=== PATIENT | female | born 1990 | race Caucasian/White ===

== ENCOUNTER 2018-02-01 07:16 | Emergency (ER) | payer OTHER ==
[2018-02-01] MEDS ORDERED: DEXAMETHASONE 10 MG/ML VIAL PO STA (08:44)
[2018-02-01] MEDS ORDERED: LIDOCAINE 1% 2 ML VIAL SUBQ ONE (08:44)
[2018-02-01] MEDS ORDERED: cefTRIAXone 1 GM VIAL IM STA (08:44)
--- NOTE | 2018-02-01 08:54 | ED Physician Documentation ---
PD HPI HEENT - Stated complaint Stated Complaint: EAR PX/R FACE LUMP - Chief complaint Chief Complaint: Heent - History obtained from History obtained from: Patient, Family - History of Present Illness Timing - onset: Yesterday Timing - duration: Days (1) Timing - details: Gradual onset, Still present Location: Right ear Improves: Medication Worsens: Swalllowing Associated symptoms: Congestion, Rhinorrhea, Facial swelling, Headache, Cough Similar symptoms before: Diagnosis (OM) Recently seen: Not recently seen - Additional information Additional information: 27-year-old female with a history of recurrent otitis has had her tonsils and adenoids removed about 2 years ago. Over the past 3 days she has had developed a cough and congestion she now has severe pain in her right ear and behind the ear as well as some difficulty swallowing. Review of Systems Constitutional: denies: Fever Eyes: denies: Decreased vision Ears: reports: Ear pain Nose: reports: Rhinorrhea / runny nose, Congestion Throat: reports: Sore throat Cardiac: denies: Chest pain / pressure, Palpitations Respiratory: reports: Cough. denies: Dyspnea GI: denies: Vomiting PD PAST MEDICAL HISTORY - Present Medications Home Medications: Ambulatory Orders Medication Instructions Recorded Confirmed Azithromycin [Zithromax] 250 mg PO DAILY #6 tablet 02/01/18 Fluoxetine HCl [Prozac] 20 mg 02/01/18 - Allergies Allergies/Adverse Reactions: Allergies Allergy/AdvReac Type Severity Reaction Status Date / Time acetaminophen Allergy Mild Nausea Verified 02/01/18 07:37 PD ED PE NORMAL - Vitals Vital signs reviewed: Yes (normal ) - General General: No acute distress, Well developed/nourished - HEENT HEENT: Atraumatic, PERRL, EOMI, Other (The right TM is inflammed in the attic and there is marked tenderness to the right mastoid. Push on the pinna and pull on the tragus cause pain again over the right mastoid area. ) - Neck Neck: Supple, no meningeal sign, No bony TTP, Other (posterior adenopathy is present. ) - Cardiac Cardiac: RRR, No murmur - Respiratory Respiratory: No respiratory distress, Clear bilaterally - Abdomen Abdomen: Soft, Non tender - Back Back: No CVA TTP, No spinal TTP - Derm Derm: Normal color, Warm and dry, No rash - Extremities Extremities: No deformity, No edema - Neuro Neuro: Alert and oriented X 3, No motor deficit, No sensory deficit, Normal speech Eye Opening: Spontaneous Motor: Obeys Commands Verbal: Oriented GCS Score: 15 - Psych Psych: Normal mood, Normal affect Results - Vitals Vitals: Vital Signs - 24 hr 02/01/18 07:35 Temperature 36.7 C Heart Rate 85 Respiratory 16 Rate Blood Pressure 137/79 H O2 Saturation 100 Oxygen O2 Source Room air - Rads (name of study) CT sinuses Radiology: Prelim report reviewed (Impression: 1. The bilateral mastoid air cells are clear. 2 Mild mucosal thickening of the bilateral maxillary sinuses, sphenoid sinuses, and ethmoid air cells. The bilateral drainage pathways appear at least partially opacified by soft tissue thickening. No air-fluid levels to suggest acute sinusitis.), EMP read indepedently, See rad report PD MEDICAL DECISION MAKING - ED course Complexity details: reviewed old records, reviewed results, re-evaluated patient , considered differential, d/w patient, d/w family ED course: 27-year-old female with a history of recurrent otitis has otitis again today with a lot of pain to the right side of her face. On my initial evaluation I was concerned about the possibility of mastoiditis because of tenderness over the mastoid air cells on the right side. CT scanning of the mastoids is without evidence of acute mastoiditis. The patient is treated here in the emergency department with 10 mg of dexamethasone orally and 1 g of Rocephin IM. We will place her on a course of azithromycin as well. - Sepsis Event Vital Signs: Vital Signs - 24 hr 02/01/18 07:35 Temperature 36.7 C Heart Rate 85 Respiratory 16 Rate Blood Pressure 137/79 H O2 Saturation 100 Oxygen O2 Source Room air Departure - Departure Disposition: 01 Home, Self Care Clinical Impression: Otitis media Qualifiers: Otitis media type: suppurative Chronicity: acute Laterality: right Recurrence: not specified as recurrent Spontaneous tympanic membrane rupture: without spontaneous rupture Qualified Code(s): H66.001 - Acute suppurative otitis media without spontaneous rupture of ear drum, right ear Instructions: ED Otitis Media Acute Adult Follow-Up: MIROSLAVA ALEJANDRE DO [Primary Care Provider] - Prescriptions: Azithromycin [Zithromax] 250 mg PO DAILY #6 tablet
--- NOTE | 2018-02-01 09:33 | CT Report ---
Procedure Date: 02/01/2018 Accession Number: [id number] / [id number] Procedure: CT - Sinuses CPT Code: FULL RESULT: EXAM: CT SINUS EXAM DATE: 02/01/2018 09:12 AM. HISTORY: Right ear pain, question mastoiditis. COMPARISONS: None. TECHNIQUE: Routine multi-axial CT imaging performed through the sinuses. Iodinated IV contrast: None. Reconstructions: Coronal and sagittal. In accordance with CT protocol optimization, one or more of the following dose reduction techniques were utilized for this exam: automated exposure control, adjustment of mA and/or KV based on patient size, or use of iterative reconstructive technique. FINDINGS: RIGHT Frontal: Normal. Ethmoid: Mild mucosal thickening. Maxillary: Mild mucosal thickening. Sphenoid: Mild mucosal thickening. Drainage Pathways: The frontal recess, ostiomeatal complex and sphenoethmoidal recess are at least partially opacified by soft tissue density. LEFT Frontal: Normal. Ethmoid: Mild mucosal thickening. Maxillary: Mild mucosal thickening. Sphenoid: Mild mucosal thickening. Drainage Pathways: The frontal recess, ostiomeatal complex and sphenoethmoidal recess are at least partially opacified by soft tissue density. Nasal Cavity: Normal. No mass or significant anatomic abnormality evident. Osseous Structures: Unremarkable. Orbits: Unremarkable. Other: The bilateral mastoid air cells are clear. IMPRESSION: 1. The bilateral mastoid air cells are clear. 2. Mild mucosal thickening of the bilateral maxillary sinuses, sphenoid sinuses, and ethmoid air cells. The bilateral drainage pathways appear at least partially opacified by soft tissue thickening. No air-fluid levels to suggest acute sinusitis. RADIA
[2018-02-01 10:09] VITALS: BP 123/72
== END 2018-02-01 10:11 | disposition home or self-care (01) ==
LOC: ED 07:16
DX: H66.004 Acute suppurative otitis media without spontaneous rupture of ear drum, recurrent, right ear (principal); Z90.09 Acquired absence of other part of head and neck
CPT/HCPCS: 70486; 96372; 99283

== ENCOUNTER 2018-02-07 16:56 | Emergency (ER) | payer OTHER ==
[2018-02-07 17:33] LABS: BILIRUBIN,URINE NEGATIVE (NEGATIVE); GLUCOSE, URINE (UA) NEGATIVE (NEGATIVE); KETONES,URINE (UA) NEGATIVE (NEGATIVE); LEUKOCYTE ESTERASE, URINE NEGATIVE (NEGATIVE); NITRITE,URINE NEGATIVE (NEGATIVE); OCCULT BLOOD,URINE MODERATE (NEGATIVE); PROTEIN,URINE TRACE mg/dL (NEGATIVE); UROBILINOGEN,URINE 0.2 (NORMAL) E.U./dL (NORMAL)
[2018-02-07 17:35] LABS: CLARITY,URINE CLEAR (CLEAR); HCG UR QUAL NEGATIVE
[2018-02-07 17:45] LABS: BACTERIA,URINE None Seen /HPF (None Seen); MUCUS,URINE Moderate Strands; RBC,URINE 0-5 /HPF (0-5); SQUAMOUS EPITHELIAL CELL,UR FEW Squamous (<= Few)
[2018-02-07] MEDS ORDERED: ONDANSETRON 4 MG/2 ML VIAL IVP STA (20:14)
[2018-02-07 20:23] LABS: BASOPHILS # (AUTO) 0.1 10^3/uL (0.0-0.1); EOSINOPHILS # (AUTO) 0.2 10^3/uL (0.0-0.7); EOSINOPHILS % (AUTO) 2.3 %; HGB - HEMOGLOBIN 10.6 g/dL (12.0-16.0); LYMPHOCYTES # (AUTO) 3.3 10^3/uL (1.5-3.5); MEAN CORPUSCULAR HEMOGLOBIN 23.6 pg (27.0-31.0); MEAN CORPUSCULAR HGB CONC 32.3 g/dL (32.0-36.0); MEAN CORPUSCULAR VOLUME 73.1 fL (81.0-99.0); MEAN PLATELET VOLUME 8.8 fL (7.9-10.8); MONOCYTES # (AUTO) 0.7 10^3/uL (0.0-1.0); MONOCYTES % (AUTO) 8.4 %; NEUTROPHILS # (AUTO) 4.4 10^3/uL (1.5-6.6); NEUTROPHILS % (AUTO) 50.3 %; PLT - PLATELET COUNT 271 10^3/uL (130-450); RED BLOOD COUNT 4.48 10^6/uL (4.20-5.40); RED CELL DISTRIBUTION WIDTH 17.4 % (12.0-15.0); WHITE BLOOD COUNT 8.8 x10^3/uL (4.8-10.8)
[2018-02-07] MEDS ORDERED: IOPAMIDOL-300 100 ML VIAL ONE (20:29)
[2018-02-07 20:35] LABS: ALBUMIN 4.1 g/dL (3.2-5.5); ALBUMIN/GLOBULIN RATIO 1.1 (1.0-2.2); BILIRUBIN,TOTAL 0.4 mg/dL (0.2-1.0); CALCIUM 8.7 mg/dL (8.5-10.3); CREATININE 0.5 mg/dL (0.4-1.0); TOTAL PROTEIN 7.7 g/dL (6.7-8.2)
[2018-02-07] MEDS ORDERED: IOPAMIDOL-300 100 ML VIAL IVP ONE (20:57)
--- NOTE | 2018-02-07 21:16 | CT Report ---
Procedure Date: 02/07/2018 Accession Number: [id number] / [id number] Procedure: CT - Abdomen/Pelvis W/ CPT Code: FULL RESULT: EXAM: CT ABDOMEN AND PELVIS EXAM DATE: 02/07/2018 08:55 PM. CLINICAL HISTORY: Right lower quadrant pain. Nausea and vomiting. COMPARISONS: None. TECHNIQUE: Routine helical CT imaging was performed through the abdomen and pelvis. IV contrast: 100 cc of Isovue-300. Enteric contrast: No. Reconstructions: Coronal and sagittal. In accordance with CT protocol optimization, one or more of the following dose reduction techniques were utilized for this exam: automated exposure control, adjustment of mA and/or KV based on patient size, or use of iterative reconstructive technique. FINDINGS: Lung Bases: Unremarkable. Liver: Diffuse low density. Gallbladder/Bile Ducts: 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. No dilated ducts. Spleen: Normal. Pancreas: Normal. Adrenal Glands: Normal. Kidneys: Normal. No masses or hydronephrosis. Peritoneal Cavity/Bowel: Normal. No free fluid, free air or adenopathy. No masses or acute inflammatory process. The appendix is well visualized and normal. Pelvic Organs: Tubal ligation clips noted. The bladder and visualized pelvic organs are within normal limits. Vasculature: No aneurysms or other significant abnormality. Bones: No significant abnormality. Other: None. IMPRESSION: 1. No acute abnormalities of the abdomen and pelvis, noting a normal appendix. 2. Hepatic steatosis noted. 3. 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. 4. Tubal ligation clips noted. RADIA
[2018-02-07] MEDS ORDERED: KETOROLAC 15 MG/ML VIAL IVP STA (21:22)
--- NOTE | 2018-02-07 21:43 | ED Physician Documentation ---
PD HPI ABD PAIN - Stated complaint Stated Complaint: FM /RASH/UPPER THIGH - Chief complaint Chief Complaint: General - History of Present Illness Timing - onset: How many days ago (2) Timing - details: Gradual onset, Still present Quality: Cramping, Aching Location: RLQ Associated symptoms: Nausea. No: Vomiting Similar symptoms before: Has not had sx before Recently seen: Not recently seen - Additional information Additional information: Patient is a 27 year old female presenting to the emergency department for abdominal pain, nausea and rash. Patient originally came to the emergency department for a rash in her groin. Patient had been on azithromycin for an ear infection and then developed erythematous painful rash in the folds in her upper legs. patient reports that while waiting to be seen she developed sever right lower quadrant pain with nausea. Review of Systems Constitutional: denies: Fever Eyes: reports: Reviewed and negative GI: reports: Abdominal Pain, Nausea, Diarrhea. denies: Vomiting, Constipation : reports: Dysuria. denies: Frequency, Hesitancy Skin: reports: Rash Musculoskeletal: denies: Back pain, Extremity pain Immunocompromised: denies: Immunocompromised PD PAST MEDICAL HISTORY - Past Surgical History Past Surgical History: No - Present Medications Home Medications: Ambulatory Orders Medication Instructions Recorded Confirmed Azithromycin [Zithromax] 250 mg PO DAILY #6 tablet 02/01/18 Fluoxetine HCl [Prozac] 20 mg 02/01/18 Butenafine HCl 1 applic TP BID #1 cream..g. 02/07/18 Ondansetron Odt [Zofran] 4 mg TL Q6H PRN #14 tablet 02/07/18 - Allergies Allergies/Adverse Reactions: Allergies Allergy/AdvReac Type Severity Reaction Status Date / Time acetaminophen Allergy Mild Nausea Verified 02/07/18 17:13 - Social History Does the pt smoke?: No Smoking Status: Never smoker Does the pt drink ETOH?: No Does the pt have substance abuse?: No PD ED PE NORMAL - Vitals Vital signs reviewed: Yes - General General: Alert and oriented X 3 - HEENT HEENT: Atraumatic, Moist mucous membranes - Cardiac Cardiac: RRR - Respiratory Respiratory: No respiratory distress - Abdomen Abdomen: Soft - Extremities Extremities: No deformity - Neuro Neuro: Alert and oriented X 3, No motor deficit, Normal speech PD ED PE EXPANDED - General General: Alert, In Pain - Abdomen Abdomen: Tender to palpation, Rebound, RLQ - Female Female visual: 1 - rash (tinea) 2 - rash (consistent with tinea) Results - Vitals Vitals: Vital Signs - 24 hr 02/07/18 02/07/18 02/07/18 17:07 20:26 22:00 Temperature 36.3 C L 37 C 36.2 C L Heart Rate 81 78 75 Respiratory 16 17 17 Rate Blood Pressure 125/75 130/71 125/81 H O2 Saturation 100 100 100 Oxygen O2 Source Room air - Labs Labs: Laboratory Tests 02/07/18 02/07/18 02/07/18 17:24 20:15 20:18 WBC 8.8 RBC 4.48 Hgb 10.6 L Hct 32.7 L MCV 73.1 L MCH 23.6 L MCHC 32.3 RDW 17.4 H Plt Count 271 MPV 8.8 Neut # (Auto) 4.4 Lymph # (Auto) 3.3 Gilliam # (Auto) 0.7 Eos # (Auto) 0.2 Baso # (Auto) 0.1 Absolute Nucleated RBC 0.01 Nucleated RBC % 0.1 Sodium 136 Potassium 3.5 Chloride 103 Carbon Dioxide 26 Anion Gap 7.0 BUN 13 Creatinine 0.5 Estimated GFR (MDRD) 148 Glucose 101 H Calcium 8.7 Total Bilirubin 0.4 AST 30 ALT 50 Alkaline Phosphatase 71 Total Protein 7.7 Albumin 4.1 Globulin 3.6 Albumin/Globulin Ratio 1.1 Lipase 41 Urine Color DARK YELLOW Urine Clarity CLEAR Urine pH 6.0 Ur Specific [place] 1.025 Urine Protein TRACE Urine Glucose (UA) NEGATIVE Urine Ketones NEGATIVE Urine Occult Blood MODERATE H Urine Nitrite NEGATIVE Urine Bilirubin NEGATIVE Urine Urobilinogen 0.2 (NORMAL) Ur Leukocyte Esterase NEGATIVE Urine RBC 0-5 Urine WBC 0-3 Ur Squamous Epith Cells FEW Squamous Urine Bacteria None Seen Urine Mucus Moderate Strands Ur Microscopic Review INDICATED Urine Culture Comments NOT INDICATED Urine HCG, Qual NEGATIVE PD MEDICAL DECISION MAKING - ED course Complexity details: reviewed old records, reviewed results, re-evaluated patient , considered differential, d/w patient, d/w family ED course: patient was seen and examined at bedside. IV access was gained and labs were drawn. patient had right lower quadrant tenderness and rebound. Imaging was ordered. patient was treated with toradol for pain and zofran for vomiting. when patient returned the results were reviewed. there were no acute findings on ct. patient required no further inpatient work up at this time and patient was stable for discharge with outpatient follow up. - Sepsis Event Vital Signs: Vital Signs - 24 hr 02/07/18 02/07/18 02/07/18 17:07 20:26 22:00 Temperature 36.3 C L 37 C 36.2 C L Heart Rate 81 78 75 Respiratory 16 17 17 Rate Blood Pressure 125/75 130/71 125/81 H O2 Saturation 100 100 100 Oxygen O2 Source Room air Departure - Departure Disposition: 01 Home, Self Care Clinical Impression: Tinea cruris Condition: Good Instructions: ED Tinea Cruris General Follow-Up: MIROSLAVA ALEJANDRE DO [Primary Care Provider] - Within 3 Days Prescriptions: Butenafine HCl 1 applic TP BID #1 cream..g. Ondansetron Odt [Zofran] 4 mg TL Q6H PRN #14 tablet PRN Reason: Nausea / Vomiting Comments: Your diagnostics today were within normal limits. there were no signs of infection, cysts or torsion. your rash is likely secondary to the antibiotic you were on. you should apply the cream twice a day and keep your groin clean and dry. you should also eat yogurt or a probiotic to help with the GI upset. you should follow up with your doctor if your symptoms persist. you may return to the emergency department at any time for new, worsening or uncontrollable symptoms. Forms: Activity restrictions Discharge Date/Time: 02/07/18 22:10
[2018-02-07 22:08] VITALS: BP 125/81
== END 2018-02-07 22:10 | disposition home or self-care (01) ==
LOC: ED 16:56
DX: B35.6 Tinea cruris (principal)
CPT/HCPCS: 36415; 74177; 80053; 81001; 81025; 83690; 85025; 96374; 96375; 99283; Q9967; 81003; 87086

== ENCOUNTER 2018-06-19 17:52 | Emergency (ER) | payer OTHER ==
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
[2018-06-19 19:32] LABS: HCG UR QUAL NEGATIVE
[2018-06-19] MEDS: IBUPROFEN 600 MG TABLET PO STA (19:56)
[2018-06-19] MEDS: CYCLOBENZAPRINE 10 MG TABLET PO STA (19:58)
--- NOTE | 2018-06-19 20:48 | XRAY Report ---
Reason: pain Procedure Date: 06/19/2018 Accession Number: [id number] / [id number] Procedure: XR - Chest 1 View X-Ray CPT Code: 45412 FULL RESULT: EXAM: CHEST RADIOGRAPHY EXAM DATE: 06/19/2018 07:57 PM. CLINICAL HISTORY: Pain. COMPARISON: None. TECHNIQUE: 1 view. FINDINGS: Lungs/Pleura: No focal opacities evident. No pleural effusion. No pneumothorax. Mediastinum: Within exam limitations, the cardiomediastinal contour is normal. Other: None. IMPRESSION: Normal single view chest. RADIA
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
[2018-06-19] MEDS: KETOROLAC 60 MG/2 ML VIAL IM STA (20:52)
[2018-06-19] MEDS: MORPHINE 2 MG/ML CARPUJECT IM STA (21:48)
[2018-06-19 22:15] VITALS: BP 122/75
== END 2018-06-19 22:15 | disposition home or self-care (01) ==
LOC: ED 17:52
DX: S49.92XA Unspecified injury of left shoulder and upper arm, initial encounter (principal); W51.XXXA Accidental striking against or bumped into by another person, initial encounter; Y92.009 Unspecified place in unspecified non-institutional (private) residence as the place of occurrence of the external cause; Y99.0 Civilian activity done for income or pay
CPT/HCPCS: 1040M; 71045; 72040; 81025; 96372; 99283; 99284

== ENCOUNTER 2018-06-22 12:45 | Outpatient (CLI) | payer OTHER | END 2018-06-22 12:46 | disposition critical access hospital (66) | LOC: EMS 12:45 | PROVIDERS: ATTEND Surgery | DX: R55 Syncope and collapse (principal); F41.9 Anxiety disorder, unspecified; R51 Headache; W18.39XA Other fall on same level, initial encounter; Y92.039 Unspecified place in apartment as the place of occurrence of the external cause | CPT/HCPCS: A0425; A0429 ==

== ENCOUNTER 2018-06-22 13:07 | Emergency (ER) | payer OTHER ==
[2018-06-22] MEDS ORDERED: LORazepam 2 MG/ML VIAL IM STA (13:21)
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
[2018-06-22] MEDS ORDERED: LORazepam 2 MG/ML VIAL IVP STA (13:52)
[2018-06-22 15:13] VITALS: BP 133/59
== END 2018-06-22 15:19 | disposition home or self-care (01) ==
LOC: EDUNIT# → ED 13:07
DX: F41.0 Panic disorder [episodic paroxysmal anxiety] (principal)
CPT/HCPCS: 93005; 96372; 96374; 99283; J2060

== ENCOUNTER 2018-08-27 16:10 | Emergency (ER) | payer OTHER ==
[2018-08-27] MEDS ORDERED: IOVERSOL 320 100 ML VIAL IVP ONE ×3 (16:11→18:06)
[2018-08-27] MEDS ORDERED: DEXAMETHASONE 10 MG/ML VIAL PO STA (17:16)
[2018-08-27] MEDS ORDERED: IBUPROFEN 800 MG TABLET PO STA (17:16)
[2018-08-27] MEDS ORDERED: CHERRY SYRUP 10 ML UDC PO ONE (17:29)
[2018-08-27] MEDS ORDERED: HYDROcod/ACETAM 5/325 MG TABLET PO STA (18:26)
--- NOTE | 2018-08-27 18:27 | CT Report ---
Reason: Swelling right neck/submandibular; ? abscess. Procedure Date: 08/27/2018 Accession Number: [id number] / [id number] Procedure: CT - Neck Soft Tissue W/ CPT Code: FULL RESULT: EXAM: CT SOFT TISSUE NECK WITH CONTRAST. EXAM DATE: 08/27/2018 05:52 PM. HISTORY: Swelling and pain behind the right ear for 2 days. Pain with swallowing or chewing. Swelling right neck/submandibular. Abscess ?. COMPARISONS: None. TECHNIQUE: Routine soft tissue neck CT protocol. Reconstructions: Coronal and sagittal. IV contrast: 80 mL OPTIRAY 320. In accordance with CT protocol optimization, one or more of the following dose reduction techniques were utilized for this exam: automated exposure control, adjustment of mA and/or KV based on patient size, or use of iterative reconstructive technique. FINDINGS: Visualized Intracranial Contents: Unremarkable. Orbits: Symmetric and unremarkable. Sinuses: Visualized paranasal sinuses and mastoid air cells are clear. Note is made of poor pneumatization of peripheral mastoid air cells bilaterally. The middle ear cavities and EAC are clear. Oral cavity: The visualized oral cavity is unremarkable. The floor of the mouth is symmetric. The dentition is unremarkable. Pharynx : Pharyngeal mucosa is unremarkable. The infratemporal fossa, parapharyngeal spaces, and retropharyngeal space are unremarkable. The base of the tongue is symmetric and unremarkable. The airway is patent. Larynx: Larynx and supraglottic airway are patent without mass lesion. Vocal cords are symmetric. The visualized trachea is unremarkable. Parotid and Submandibular Glands: Symmetric and unremarkable. Symmetric prominence to the parotid and submandibular glands is noted without mass or calculus. Lymph Nodes: Prominence to jugulodigastric chain lymph nodes is seen bilaterally. This predominates in level 2 and level 5A lymph nodes. No hypodensity is seen to suggest abscess. Soft tissues: Soft tissues are unremarkable. No mass lesion or abnormal enhancement. Vascular Structures: Patent and unremarkable. Thyroid Gland: Normal. Lung: The visualized lung apices are clear. Bones: No evidence of acute fracture or malalignment. Other: None. IMPRESSION: 1. Mild prominence to jugulodigastric chain lymph nodes in the upper and mid neck. Findings are nonspecific. This could represent reactive inflammatory change. No hypodensity is seen to suggest lymph node abscess. 2. Otherwise unremarkable CT scan of the neck. No mass or abnormal inflammation is seen. RADIA
--- NOTE | 2018-08-27 18:32 | ED Physician Documentation ---
PD HPI HEENT - Stated complaint Stated Complaint: EAR PAIN AND SIDE OF FACE SWOLLEN - Chief complaint Chief Complaint: Heent - History obtained from History obtained from: Patient - History of Present Illness Timing - details: Gradual onset Location: Right ear, Throat Associated symptoms: Facial swelling Recently seen: Clinic (Treated with Amoxacillin for the past 10 days for otitis media.) - Additional information Additional information: The patient is a 27-year-old female who presents with right earache that has been persistent despite 10-day treatment course with amoxicillin for otitis media. She has noticed decreased hearing in her right ear. She also reports headache and right facial and neck swelling. She complains of sore throat on the right. She denies fever, cough, or abdominal pain. She has a history of ear infections. Review of Systems Constitutional: denies: Fever Eyes: denies: Irritation Ears: reports: Ear pain (right). denies: Tinnitus/ringing Nose: denies: Congestion Throat: reports: Sore throat. denies: Dental pain / toothache Cardiac: denies: Chest pain / pressure Respiratory: denies: Dyspnea, Cough GI: denies: Abdominal Pain, Nausea, Vomiting : denies: Dysuria Skin: denies: Rash Musculoskeletal: reports: Neck pain (on the right.) Neurologic: reports: Headache. 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 HEENT: Tonsil/Adenoidectomy - Present Medications Home Medications: Ambulatory Orders Medication Instructions Recorded Confirmed Dextroamphetamine/Amphetamine 0 mg 06/19/18 [Adderall 5 mg Tablet] Ibuprofen [Motrin] 800 mg PO Q8H PRN #30 tablet 06/19/18 Amox/Clav 875/125 [Augmentin] 1 each PO Q12H #14 tablet 08/27/18 Amoxicillin 08/27/18 - Allergies Allergies/Adverse Reactions: Allergies Allergy/AdvReac Type Severity Reaction Status Date / Time acetaminophen Allergy Mild Nausea Verified 08/27/18 16:19 - Social History Does the pt smoke?: No Smoking Status: Never smoker Does the pt drink ETOH?: Yes ETOH Use: Beer Does the pt have substance abuse?: No - Immunizations Immunizations are current?: Yes - POLST Patient has POLST: No PD ED PE NORMAL - Vitals Vital signs reviewed: Yes (Borderline systolic hypertension initially.) - General General: Alert and oriented X 3, Well developed/nourished - HEENT HEENT: Atraumatic, PERRL, EOMI, Other (Right tympanic membrane is cloudy and bulging. Left tympanic membrane is clear.Oropharynx is mildly erythematous, without exudates. There is no peritonsillar swelling.) - Neck Neck: Supple, no meningeal sign, Other (Right anterior cervical adenopathy, with associated tenderness to palpation.) - Cardiac Cardiac: RRR - Respiratory Respiratory: No respiratory distress, Clear bilaterally - Abdomen Abdomen: Soft, Non tender - Back Back: No CVA TTP - Derm Derm: No rash - Extremities Extremities: No edema, No calf tenderness / cord - Neuro Neuro: Alert and oriented X 3, No motor deficit, Normal speech Results - Vitals Vitals: Oxygen O2 Source Room air - Labs Labs: Microbiology 08/27/18 17:15 Group A Strep Throat Culture - Preliminary Throat CULTURE IN PROGRESS. RESULTS TO FOLLOW. Laboratory Tests 08/27/18 17:15 Group A Strep Rapid Negative - Rads (name of study) CT soft tissue neck Radiology: Prelim report reviewed, EMP read contemporaneously, See rad report (Mild prominence of jugulodigastric chain lymph nodes in the upper and mid neck. Findings are nonspecific. This could represent reactive inflammatory change. No hypodensity is seen to suggest lymph node abscess. Otherwise unremarkable CT scan of the neck. No mass or abnormal inflammation is seen.) PD MEDICAL DECISION MAKING - ED course Complexity details: reviewed results, re-evaluated patient, considered differential, d/w patient ED course: The patient's presentation is most consistent with persistent right otitis media, with reactive cervical lymph nodes. CT scan of the neck does not reveal evidence of an abscess. Rapid strep screen is negative. Treatment in the emergency department included administration of dexamethasone 10 mg orally, ibuprofen 800 mg orally, and oxycodone 5 mg orally. She is being discharged with prescription for Augmentin. I discussed with her the expected course of illness, antibiotic treatment and outpatient follow-up, as well as potentially worrisome signs or symptoms that should prompt reevaluation in the emergency department. Departure - Departure Disposition: 01 Home, Self Care Clinical Impression: Right otitis media with effusion, Reactive cervical lymphadenopathy Condition: Stable Instructions: ED Otitis Media Acute Adult Follow-Up: MIROSLAVA ALEJANDRE DO [Primary Care Provider] - Prescriptions: Amox/Clav 875/125 [Augmentin] 1 each PO Q12H #14 tablet Comments: Take Augmentin twice daily as prescribed. Gargle with cool liquids. You can use ibuprofen, up to 800 mg 3 times daily for anti-inflammatory effect. Follow-up with your primary physician within 1 week. Call to schedule an appointment. Return to the emergency department if you develop increasing difficulty swallowing, or otherwise worsening symptoms. Forms: Activity restrictions Discharge Date/Time: 08/27/18 18:47
[2018-08-27] MEDS ORDERED: oxyCODONE 5 MG TABLET PO STA (18:33)
[2018-08-27 18:47] VITALS: BP 139/81
== END 2018-08-27 18:47 | disposition home or self-care (01) ==
LOC: ED 16:10
DX: H65.91 Unspecified nonsuppurative otitis media, right ear (principal); R59.1 Generalized enlarged lymph nodes
CPT/HCPCS: 70491; 87070; 87430; 99283; A9270; Q9967

== ENCOUNTER 2019-06-15 19:01 | Emergency (ER) | payer OTHER ==
--- NOTE | 2019-06-15 20:14 | ED Physician Documentation ---
PD HPI HEENT - Stated complaint Stated Complaint: FACIAL SWELLING, LUMPS BEHIND BOTH EARS - Chief complaint Chief Complaint: Heent - History obtained from History obtained from: Patient - History of Present Illness Timing - onset: How many days ago (has had 2-3 days of increasing pain and swelling at sides of neck and behind ears, particularly left side. No swelling of throat nor any dyspnea.) Timing - duration: Days Timing - details: Gradual onset, Still present Location: Left ear, Other (anterior and lateral neck both sides, left more than right.). No: Throat Worsens: Position, Other (palpation and movement hurt the most.). No: Swalllowing Associated symptoms: Swollen nodes, Facial swelling. No: Fever, Cough Similar symptoms before: No diagnosis (has had this recurrently since July, without really having the swelling go completely away. Only moderately decreased size, though not tender. She says she has had drainage from the ears start after the adenopathy worsens the few times it has done this. Rx with Augmentin in July. And has had Rx of what sounds like Bactrim and perhaps Doxy (by regimen and pill type/dosing/color), with improvement in ears but not having adenopathy improve much. had seen ENT about [address] Gasca wanted to get CT (there had been one in July with initial ER visit). The referral for the CT is still in process. Having worse symptoms now the past few days.) Recently seen: Clinic (PMD and ENT) Review of Systems Constitutional: reports: Myalgias. denies: Fever Eyes: denies: Discharge Ears: reports: Ear pain, Tinnitus/ringing (left ear for months). 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 : None HEENT: Other Psych: Depression, Anxiety, Panic attacks Musculoskeletal: None Derm: None - Past Surgical History Past Surgical History: Yes General: 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 /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: section HEENT: Tonsil/Adenoidectomy - Present Medications Home Medications: Ambulatory Orders Medication Instructions Recorded Confirmed Cephalexin [Keflex] 500 mg PO Q6H #28 capsule 06/16/19 Fluconazole [Diflucan] 100 mg PO ONCE #2 tablet 06/16/19 Oxycodone HCl 5 - 10 mg PO Q6H PRN #25 tablet 06/16/19 dexAMETHasone [Decadron] 4 mg PO DAILY #5 tablet 06/16/19 - Allergies Allergies/Adverse Reactions: Allergies Allergy/AdvReac Type Severity Reaction Status Date / Time acetaminophen Allergy Mild Nausea Verified 06/15/19 19:06 - Social History Does the pt smoke?: No Smoking Status: Never smoker Does the pt drink ETOH?: Yes Does the pt have substance abuse?: No - Immunizations Immunizations are current?: Yes - POLST Patient has POLST: No PD ED PE NORMAL - Vitals Vital signs reviewed: Yes - General General: Alert and oriented X 3, Well developed/nourished, Other (appears in pain due to neck tenderness) - HEENT HEENT: Ears normal, Moist mucous membranes, Pharynx benign - Neck Neck: No bony TTP, Other (adenopathy that is tender both sides, submandibular and postauricular. Not tender at mastoid areas and no redness/warmth. posterior neck not tender. ) - Cardiac Cardiac: RRR, No murmur - Respiratory Respiratory: Clear bilaterally - Abdomen Abdomen: Soft, Non tender - Back Back: No CVA TTP - Derm Derm: Normal color, Warm and dry, No rash - Neuro Neuro: Alert and oriented X 3, No motor deficit, Normal speech Results - Vitals Vitals: Vital Signs - 24 hr 06/15/19 06/15/19 06/15/19 19:03 19:06 21:24 Temperature 36.2 C L Heart Rate 69 69 64 Respiratory 18 18 18 Rate Blood Pressure 125/79 125/79 136/56 H O2 Saturation 100 100 100 06/15/19 23:25 Temperature 36.5 C Heart Rate 75 Respiratory 18 Rate Blood Pressure 128/81 H O2 Saturation 100 Oxygen O2 Source Room air - Labs Labs: Laboratory Tests 06/15/19 06/15/19 20:50 20:50 WBC 7.8 RBC 4.44 Hgb 10.0 L Hct 34.1 L MCV 76.8 L MCH 22.5 L MCHC 29.3 L RDW 16.9 H Plt Count 327 MPV 10.8 Neut # (Auto) 3.9 Lymph # (Auto) 3.1 [place] # (Auto) 0.6 Eos # (Auto) 0.2 Baso # (Auto) 0.0 Absolute Nucleated RBC 0.00 Nucleated RBC % 0.0 Sodium 138 Potassium 3.8 Chloride 103 Carbon Dioxide 27 Anion Gap 8.0 BUN 8 Creatinine 0.5 Estimated GFR (MDRD) 147 Glucose 92 Calcium 8.9 Total Bilirubin 0.4 AST 35 ALT 68 H Alkaline Phosphatase 82 Total Protein 8.4 H Albumin 4.7 Globulin 3.7 Albumin/Globulin Ratio 1.3 Lipase 38 - Rads (name of study) neck/chest CT Radiology: Prelim report reviewed, See rad report (cervical adenopathy. No abscess, no source infection. chest is clear.) PD MEDICAL DECISION MAKING - ED course Complexity details: considered differential (Consider recurrent or chronic infection with cervical adenopathy. Potentially could be viral though to long time for that. She states the adenopathy gets bigger and more tender prior to her having ear drainage. The CT of the neck is done and shows adenopathy with out other obvious pathology. The patient should try some antibiotics and steroids. She should follow-up with her ENT. At this point with the duration of the adenopathy and no obvious infection source per se, consideration would be for atypical lymph node pathology and presumed she would need to have a lymph node biopsy.), d/w patient Departure - Departure Disposition: 01 Home, Self Care Clinical Impression: Cervical lymphadenitis Condition: Stable Record reviewed to determine appropriate education?: Yes Instructions: ED Cervical Adenitis Abx Tx Follow-Up: MIROSLAVA ALEJANDRE DO [Primary Care Provider] - Mahamed Gasca MD [Physician No Access] - Prescriptions: Cephalexin [Keflex] 500 mg PO Q6H #28 capsule dexAMETHasone [Decadron] 4 mg PO DAILY #5 tablet Fluconazole [Diflucan] 100 mg PO ONCE #2 tablet Oxycodone HCl 5 - 10 mg PO Q6H PRN #25 tablet PRN Reason: Pain Comments: I would suggest trying a combination of antibiotic and anti-inflammatories. We will pick an antibiotic it sounds like is different from your previous ones. Take cephalexin 4 times a day for a week. Add Decadron steroid anti- inflammatory for 5 days. Use the antifungal Diflucan at the third and 6-day of your antibiotics to treat any developing yeast infection. Use some ibuprofen or naproxen initially for pain and add oxycodone if needed for worse pain. I would suggest following up with the ENT specialist again. The next step in the evaluation would likely be a lymph node biopsy to ensure or evaluate if there inflammatory and reacting to an infection versus abnormal growth of the lymph node. The CT scan showed lymph nodes present without any signs of deeper infection. Forms: Activity restrictions Discharge Date/Time: 06/16/19 00:17
[2019-06-15] MEDS ORDERED: KETOROLAC 30 MG/ML VIAL IVP STA (20:35)
[2019-06-15] MEDS ORDERED: SODIUM CHLORIDE 0.9% 1,000 ML IV ONE (20:35)
[2019-06-15] MEDS ORDERED: HYDROmorphone 2 MG/ML VIAL IVP STA (20:35)
[2019-06-15] MEDS ORDERED: DEXAMETHASONE 10 MG/ML VIAL IVP STA (20:37)
[2019-06-15 20:56] LABS: BASOPHILS % (AUTO) 0.5 %; EOSINOPHILS # (AUTO) 0.2 10^3/uL (0.0-0.7); EOSINOPHILS % (AUTO) 2.1 %; LYMPHOCYTES # (AUTO) 3.1 10^3/uL (1.5-3.5); LYMPHOCYTES % (AUTO) 39.6 %; MEAN CORPUSCULAR HEMOGLOBIN 22.5 pg (27.0-31.0); MEAN CORPUSCULAR HGB CONC 29.3 g/dL (32.0-36.0); MEAN CORPUSCULAR VOLUME 76.8 fL (81.0-99.0); MEAN PLATELET VOLUME 10.8 fL (7.9-10.8); MONOCYTES # (AUTO) 0.6 10^3/uL (0.0-1.0); MONOCYTES % (AUTO) 7.3 %; NEUTROPHILS # (AUTO) 3.9 10^3/uL (1.5-6.6); PLT - PLATELET COUNT 327 10^3/uL (130-450); RED BLOOD COUNT 4.44 10^6/uL (4.20-5.40); RED CELL DISTRIBUTION WIDTH 16.9 % (12.0-15.0); WHITE BLOOD COUNT 7.8 x10^3/uL (4.8-10.8)
[2019-06-15 21:09] LABS: ALBUMIN 4.7 g/dL (3.2-5.5); ALBUMIN/GLOBULIN RATIO 1.3 (1.0-2.2); BILIRUBIN,TOTAL 0.4 mg/dL (0.2-1.0); CALCIUM 8.9 mg/dL (8.5-10.3); CREATININE 0.5 mg/dL (0.4-1.0); TOTAL PROTEIN 8.4 g/dL (6.7-8.2)
[2019-06-15] MEDS ORDERED: IOVERSOL 320 100 ML VIAL IVP ONE ×2 (21:32→22:14)
--- NOTE | 2019-06-15 22:32 | CT Report ---
Reason: swelling neck for months Procedure Date: 06/15/2019 Accession Number: [id number] / [id number] Procedure: CT - SOFT TISSUE NECK W CPT Code: Final Report FULL RESULT: EXAM: CT SOFT TISSUE NECK WITH CONTRAST. EXAM DATE: 06/15/2019 09:38 PM. HISTORY: Bilateral neck swelling in the postauricular regions extending into the chest for several months. COMPARISONS: NECK SOFT TISSUE W/ 08/27/2018 5:52 PM. TECHNIQUE: Routine soft tissue neck CT protocol with contrast. Reconstructions: Coronal and sagittal. IV contrast: Optiray 320 100 mL. In accordance with CT protocol optimization, one or more of the following dose reduction techniques were utilized for this exam: automated exposure control, adjustment of mA and/or KV based on patient size, or use of iterative reconstructive technique. FINDINGS: Visualized Intracranial Contents: Unremarkable. Orbits: Symmetric and unremarkable. Sinuses: Visualized paranasal sinuses and mastoid air cells are clear. Oral cavity: The visualized oral cavity is unremarkable. The floor of the mouth is symmetric. Pharynx: Pharyngeal mucosa is unremarkable. The infratemporal fossa, parapharyngeal spaces, and retropharyngeal space are unremarkable. The base of the tongue is symmetric and unremarkable. The airway is patent. Larynx: Larynx and supraglottic airway are patent without mass lesion. Vocal cords are symmetric. The visualized trachea is unremarkable. Parotid and Submandibular Glands: Symmetric and unremarkable. Lymph Nodes: Multiple prominent bilateral jugulodigastric and posterior cervical triangle lymph nodes are again demonstrated in the bilateral level 2 and level 5 lymph node stations, not significantly changed compared to the prior CT. Soft tissues: No abnormal enhancing mass lesion or fluid collection is seen in the remaining soft tissues of the neck. Vascular Structures: Patent. Thyroid Gland: Normal. Lung: The visualized lung apices are clear. Bones: Normal. IMPRESSION: 1. Nonspecific upper neck lymphadenopathy is again demonstrated, similar in appearance compared to the neck CT from 08/27/2018. Clinical correlation for a recent upper respiratory infection is recommended. If such a history is not elicited, consider atypical infection or lymphoma/leukemia. 2. Patent airway and vasculature. 3. No evidence of a drainable abscess in the soft tissues of the neck. RADIA
--- NOTE | 2019-06-15 23:05 | CT Report ---
Reason: swelling neck for months Procedure Date: 06/15/2019 Accession Number: [id number] / [id number] Procedure: CT - CHEST W CPT Code: Final Report FULL RESULT: EXAM: CT CHEST EXAM DATE: 06/15/2019 10:11 PM. CLINICAL HISTORY: Swelling neck for months. COMPARISONS: None. TECHNIQUE: Routine helical CT imaging was performed through the chest. IV contrast: 100 mL of Optiray 320. Reconstructions: Coronal and sagittal. In accordance with CT protocol optimization, one or more of the following dose reduction techniques were utilized for this exam: automated exposure control, adjustment of mA and/or KV based on patient size, or use of iterative reconstructive technique. FINDINGS: Lungs/Pleura: No nodules, bronchial thickening, consolidation, or edema. Pulmonary vasculature is normal. No pericardial or pleural effusion. No pneumothorax. Mediastinum: Normal. No adenopathy or masses. The heart and great vessels are normal. Bones: Unremarkable. Visualized Abdomen: Unremarkable. Other: None. IMPRESSION: Normal chest CT. RADIA
[2019-06-15 23:26] VITALS: BP 128/81
[2019-06-15] MEDS ORDERED: HYDROmorphone 1 MG/ML CARPUJECT IVP STA (23:52)
[2019-06-15] MEDS ORDERED: oxyCODONE 5 MG TABLET PO STA (23:52)
[2019-06-15] MEDS ORDERED: cephALEXin 250 MG CAPSULE PO STA (23:53)
== END 2019-06-16 00:17 | disposition home or self-care (01) ==
LOC: ED 19:01
DX: I88.9 Nonspecific lymphadenitis, unspecified (principal); M54.2 Cervicalgia
CPT/HCPCS: 36415; 70491; 71260; 80053; 83690; 85025; 96361; 96374; 96375; 96376; 99284; A9270; J1170; Q9967

== ENCOUNTER 2019-06-25 12:57 | Emergency (ER) | payer OTHER ==
[2019-06-25 13:06] VITALS: BP 141/81
[2019-06-25] MEDS ORDERED: predniSONE 20 MG TABLET PO STA (13:39)
[2019-06-25] MEDS ORDERED: AMOX/CLAV 875 MG/125 MG TABLET PO STA (13:39)
--- NOTE | 2019-06-25 13:43 | ED Physician Documentation ---
History of Present Illness - Stated complaint Stated Complaint: R SIDE FACIAL SWELLING - Chief complaint Chief Complaint: Heent - History obtained from History obtained from: Patient - History of Present Illness Timing: How many weeks ago (1) Pain level max: 9 Pain level now: 8 - Additonal information Additional information: 28-year-old female presents to the emergency department stating that she has had rhinorrhea, congestion and bilateral facial swelling for the past 5 days. Was seen here previously, placed on antibiotics, dexamethasone and oxycodone. She states the swelling is gotten worse. 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 HEENT: Tonsil/Adenoidectomy - Present Medications Home Medications: Ambulatory Orders Medication Instructions Recorded Confirmed Cephalexin [Keflex] 500 mg PO Q6H #28 capsule 06/16/19 Fluconazole [Diflucan] 100 mg PO ONCE #2 tablet 06/16/19 Oxycodone HCl 5 - 10 mg PO Q6H PRN #25 tablet 06/16/19 dexAMETHasone [Decadron] 4 mg PO DAILY #5 tablet 06/16/19 Amox/Clav 875/125 [Augmentin] 1 each PO Q12H #20 tablet 06/25/19 Meloxicam [Mobic] 15 mg PO DAILY PRN #20 tablet 06/25/19 oxyCODONE [Roxicodone] 5 - 10 mg PO Q4-6H #14 tablet 06/25/19 predniSONE [Deltasone] 10 mg PO [id number] #42 tab 06/25/19 - Allergies Allergies/Adverse Reactions: Allergies Allergy/AdvReac Type Severity Reaction Status Date / Time acetaminophen Allergy Mild Nausea Verified 06/25/19 13:01 - Social History Does the pt smoke?: No Smoking Status: Never smoker Does the pt drink ETOH?: Yes Does the pt have substance abuse?: No - Immunizations Immunizations are current?: Yes - POLST Patient has POLST: No PD ED PE NORMAL - Vitals Vital signs reviewed: Yes - General General: Alert and oriented X 3, No acute distress - HEENT HEENT: Moist mucous membranes, Other (B parotid swelling, no skin changes. no purulence from the ducts. ) - Neck Neck: Supple, no meningeal sign, Other (shotty cervical LAD.) - Cardiac Cardiac: RRR - Respiratory Respiratory: No respiratory distress, Clear bilaterally - Derm Derm: Warm and dry - Neuro Neuro: Alert and oriented X 3 - Psych Psych: Normal mood, Normal affect Results - Vitals Vitals: Oxygen O2 Source Room air PD MEDICAL DECISION MAKING - ED course Complexity details: reviewed results, re-evaluated patient, considered differential, d/w patient, d/w family ED course: 28-year-old female with what appears to be bilateral parotitis. Likely viral. We will cover with antibiotics however given that she had a fever a few days ago. She has seen ENT. Had a CT scan of the neck and chest recently. Will not repeat these today. Patient counseled regarding signs and symptoms for which I believe and urgent re-evaluation would be necessary. Patient with good understanding of and agreement to plan and is comfortable going home at this time This document was made in part using voice recognition software. While efforts are made to proofread this document, sound alike and grammatical errors may occur. Departure - Departure Disposition: 01 Home, Self Care Clinical Impression: Parotitis Condition: Good Instructions: ED Submandibular Gland Infec Follow-Up: MIROLSAVA ALEJANDRE DO [Primary Care Provider] - Within 1 week Prescriptions: Amox/Clav 875/125 [Augmentin] 1 each PO Q12H #20 tablet Meloxicam [Mobic] 15 mg PO DAILY PRN #20 tablet PRN Reason: pain oxyCODONE [Roxicodone] 5 - 10 mg PO Q4-6H #14 tablet predniSONE [Deltasone] 10 mg PO [id number] #42 tab Comments: This is likely viral, but we will change your antibiotics in case it is bacterial. This will likely take approximately 2 weeks to resolve. Follow-up with your doctor for further care. Do not drink alcohol or drive while on narcotic pain medicine. Note that many narcotic pain relievers also contain tylenol/acetaminophen. Please ensure that your total dose of acetaminophen from all sources does not exceed 3 grams (3000mg) per day. You may constipated on this medication, take a stool softener such as "Colace" twice a day while you are on it. Also recommend a [id number]-pjubipo laxative such as senna or MiraLAX any day that you do not have a bowel movement. If you received narcotic pain medication in the emergency department, do not drive or operate machinery for the next 24 hours. Discharge Date/Time: 06/25/19 14:18
== END 2019-06-25 14:18 | disposition home or self-care (01) ==
LOC: ED 12:57
DX: K11.20 Sialoadenitis, unspecified (principal)
CPT/HCPCS: 99283; A9270; J7512

== ENCOUNTER 2019-08-15 16:49 | Emergency (ER) | payer OTHER ==
[2019-08-15 17:39] LABS: BASOPHILS % (AUTO) 0.4 %; EOSINOPHILS # (AUTO) 0.1 10^3/uL (0.0-0.7); EOSINOPHILS % (AUTO) 1.9 %; HGB - HEMOGLOBIN 9.5 g/dL (12.0-16.0); LYMPHOCYTES # (AUTO) 2.4 10^3/uL (1.5-3.5); LYMPHOCYTES % (AUTO) 34.8 %; MEAN CORPUSCULAR HEMOGLOBIN 20.9 pg (27.0-31.0); MEAN CORPUSCULAR VOLUME 72.1 fL (81.0-99.0); MEAN PLATELET VOLUME 10.2 fL (7.9-10.8); MONOCYTES # (AUTO) 0.4 10^3/uL (0.0-1.0); MONOCYTES % (AUTO) 5.3 %; NEUTROPHILS % (AUTO) 57.2 %; PLT - PLATELET COUNT 349 10^3/uL (130-450); RED BLOOD COUNT 4.55 10^6/uL (4.20-5.40); RED CELL DISTRIBUTION WIDTH 16.1 % (12.0-15.0); WHITE BLOOD COUNT 6.9 x10^3/uL (4.8-10.8)
[2019-08-15 17:51] LABS: ALBUMIN 4.4 g/dL (3.2-5.5); ALBUMIN/GLOBULIN RATIO 1.2 (1.0-2.2); BILIRUBIN,TOTAL 0.7 mg/dL (0.2-1.0); CALCIUM 8.9 mg/dL (8.5-10.3); CREATININE 0.5 mg/dL (0.4-1.0); TOTAL PROTEIN 8.2 g/dL (6.7-8.2)
--- NOTE | 2019-08-15 18:03 | ED Physician Documentation ---
History of Present Illness - Stated complaint Stated Complaint: RT SIDE BACK PX, DIARRHEA, BLOOD IN STOOL - Chief complaint Chief Complaint: General - History obtained from History obtained from: Patient - History of Present Illness Timing: Other (28-year-old woman with history of anemia and heavy periods for the last 3 days has had bright red blood per rectum with soft stools and some right sided low back pain. No hematuria or dysuria but if she pees and urine touches her anus it hurts. No weight loss. She is never had this before. She has a history of cholecystectomy but no other bowel problems. She has had a tubal ligation.) Review of Systems Constitutional: denies: Fever, Chills, Fatigue, Weight Loss Respiratory: denies: Dyspnea, Cough GI: reports: Nausea. denies: Abdominal Pain, Vomiting, Constipation, Diarrhea, Hematemesis : denies: Dysuria, Frequency PD PAST MEDICAL HISTORY - Past Medical History Cardiovascular: None Respiratory: None Neuro: None Endocrine/Autoimmune: None GI: None COW TESTER: None : None HEENT: Other Psych: Depression, Anxiety, Panic attacks Musculoskeletal: None Derm: None - Past Surgical History Past Surgical History: Yes General: 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 /COW TESTER: section HEENT: Tonsil/Adenoidectomy - Present Medications Home Medications: Ambulatory Orders Medication Instructions Recorded Confirmed Cephalexin [Keflex] 500 mg PO Q6H #28 capsule 06/16/19 Fluconazole [Diflucan] 100 mg PO ONCE #2 tablet 06/16/19 Oxycodone HCl 5 - 10 mg PO Q6H PRN #25 tablet 06/16/19 dexAMETHasone [Decadron] 4 mg PO DAILY #5 tablet 06/16/19 Amox/Clav 875/125 [Augmentin] 1 each PO Q12H #20 tablet 06/25/19 Meloxicam [Mobic] 15 mg PO DAILY PRN #20 tablet 06/25/19 oxyCODONE [Roxicodone] 5 - 10 mg PO Q4-6H #14 tablet 06/25/19 predniSONE [Deltasone] 10 mg PO [id number] #42 tab 06/25/19 Lidocaine [Anecream] 5 gm TP QID #2 cream..g. 08/15/19 - Allergies Allergies/Adverse Reactions: Allergies Allergy/AdvReac Type Severity Reaction Status Date / Time acetaminophen Allergy Mild Nausea Verified 08/15/19 16:53 - Social History Does the pt smoke?: No Smoking Status: Never smoker Does the pt drink ETOH?: Yes Does the pt have substance abuse?: No - Immunizations Immunizations are current?: Yes - POLST Patient has POLST: No PD ED PE NORMAL - Vitals Vital signs reviewed: Yes - General General: Alert and oriented X 3, No acute distress - Abdomen Abdomen: Normal bowel sounds, Soft, Non tender - Rectal Rectal: Other (None with Julieth AYALA present and chaperoning, no stool in the vault, no hemorrhoids or tears, no gross blood in the vault.) - Back Back: Other (TTP R flank) - Neuro Neuro: Alert and oriented X 3, Normal speech - Psych Psych: Normal mood, Normal affect Results - Vitals Vitals: Vital Signs - 24 hr 08/15/19 08/15/19 08/15/19 16:53 18:55 19:20 Temperature 36.5 C Heart Rate 78 72 71 Respiratory 14 18 19 Rate Blood Pressure 131/72 H 112/65 113/71 O2 Saturation 100 100 100 Oxygen O2 Source Room air - Labs Labs: Laboratory Tests 08/15/19 08/15/19 08/15/19 17:34 17:34 18:10 WBC 6.9 RBC 4.55 Hgb 9.5 L Hct 32.8 L MCV 72.1 L MCH 20.9 L MCHC 29.0 L RDW 16.1 H Plt Count 349 MPV 10.2 Neut # (Auto) 4.0 Lymph # (Auto) 2.4 [place] # (Auto) 0.4 Eos # (Auto) 0.1 Baso # (Auto) 0.0 Absolute Nucleated RBC 0.00 Nucleated RBC % 0.0 Sodium 138 Potassium 3.8 Chloride 103 Carbon Dioxide 25 Anion Gap 10.0 BUN 8 Creatinine 0.5 Estimated GFR (MDRD) 147 Glucose 96 Calcium 8.9 Total Bilirubin 0.7 AST 41 ALT 76 H Alkaline Phosphatase 75 Total Protein 8.2 Albumin 4.4 Globulin 3.8 Albumin/Globulin Ratio 1.2 Lipase 39 Urine Color YELLOW Urine Clarity CLEAR Urine pH 7.0 Ur Specific [place] 1.015 Urine Protein NEGATIVE Urine Glucose (UA) NEGATIVE Urine Ketones NEGATIVE Urine Occult Blood NEGATIVE Urine Nitrite NEGATIVE Urine Bilirubin NEGATIVE Urine Urobilinogen 0.2 (NORMAL) Ur Leukocyte Esterase NEGATIVE Ur Microscopic Review NOT INDICATED Urine Culture Comments NOT INDICATED Urine HCG, Qual NEGATIVE PD MEDICAL DECISION MAKING - ED course ED course: 28-year-old woman with slight hematochezia and right flank pain, her work-up demonstrates anemia but review of the records show this is a chronic phenomenon, but by history likely due to chronic menorrhagia. Otherwise her work-up was negative. She has been on iron supplements in the past but did not want to restart them because they give her constipation so I discussed with her that she should consider talking with her doctor about a referral for ablation. And if the current symptoms are persistent also referral for colonoscopy. Departure - Departure Disposition: Home, Self Care Clinical Impression: Right flank pain, Hematochezia Condition: Good Record reviewed to determine appropriate education?: Yes Instructions: ED Abdominal Pain Unkn Cause Prescriptions: Lidocaine [Anecream] 5 gm TP QID #2 cream..g. Comments: You are anemic, but review of her old labs suggest this is a chronic phenomenon likely due to heavy periods. Since you do not tolerate iron supplementation well, talk with your primary care physician about a referral for endometrial ablation. Also talk with your primary care physician about a referral for colonoscopy if the current symptoms are persistent. Return for new or worsening symptoms.
[2019-08-15 18:21] LABS: BILIRUBIN,URINE NEGATIVE (NEGATIVE); GLUCOSE, URINE (UA) NEGATIVE (NEGATIVE); KETONES,URINE (UA) NEGATIVE (NEGATIVE); LEUKOCYTE ESTERASE, URINE NEGATIVE (NEGATIVE); NITRITE,URINE NEGATIVE (NEGATIVE); OCCULT BLOOD,URINE NEGATIVE (NEGATIVE); PROTEIN,URINE NEGATIVE (NEGATIVE); UROBILINOGEN,URINE 0.2 (NORMAL) E.U./dL (NORMAL)
[2019-08-15 18:24] LABS: CLARITY,URINE CLEAR (CLEAR); HCG UR QUAL NEGATIVE
[2019-08-15] MEDS ORDERED: IOVERSOL 320 100 ML VIAL IVP ONE ×2 (18:27→21:19)
[2019-08-15] MEDS ORDERED: KETOROLAC 30 MG/ML VIAL IVP STA (19:11)
[2019-08-15] MEDS ORDERED: ONDANSETRON 4 MG/2 ML VIAL IVP STA (19:13)
[2019-08-15 19:21] VITALS: BP 113/71
--- NOTE | 2019-08-15 19:22 | CT Report ---
Reason: abdominal pain, right lower quadrant Procedure Date: 08/15/2019 Accession Number: [id number] / [id number] Procedure: CT - Abdomen/Pelvis W CPT Code: Final Report FULL RESULT: EXAM: CT ABDOMEN AND PELVIS EXAM DATE: 08/15/2019 06:45 PM. CLINICAL HISTORY: Abdominal pain, right lower quadrant. COMPARISONS: ABDOMEN/PELVIS W/ 02/07/2018 8:48 PM. TECHNIQUE: Routine helical CT imaging was performed through the abdomen and pelvis. IV contrast: OPTI 320 100ML. Enteric contrast: No. Reconstructions: Coronal and sagittal. In accordance with CT protocol optimization, one or more of the following dose reduction techniques were utilized for this exam: automated exposure control, adjustment of mA and/or KV based on patient size, or use of iterative reconstructive technique. FINDINGS: Lung Bases: Unremarkable. Liver: Normal. No masses. Gallbladder/Bile Ducts: Gallbladder is surgically absent. Spleen: Normal. Pancreas: Normal. Adrenal Glands: Normal. Kidneys: Normal. No masses or hydronephrosis. No renal or ureteral stones. Peritoneal Cavity/Bowel: Normal. No free fluid, free air or adenopathy. No masses or acute inflammatory process. The appendix is well visualized and normal. Pelvic Organs: Uterus and bilateral ovaries are normal in size. No abnormal free fluid in the pelvis. Urinary bladder is unremarkable. Vasculature: No aneurysms or other significant abnormality. Bones: There is left-sided L5 spondylolysis. No spondylolisthesis. No acute fracture. Other: None. IMPRESSION: 1. Negative for a CT finding to explain clinical symptoms. 2. No urolithiasis or hydronephrosis. 3. Normal appendix. 4. Ovaries normal in size. No abnormal fluid collection. RADIA
[2019-08-15] MEDS ORDERED: LIDOCAINE VISCOUS 2% 15 ML UDC TOP STA (19:37)
[2019-08-15] MEDS ORDERED: METOCLOPRAMIDE 10 MG/2 ML VIAL IVP STA (19:38)
== END 2019-08-15 20:06 | disposition home or self-care (01) ==
LOC: ED 16:49
DX: K92.1 Melena (principal); R10.9 Unspecified abdominal pain; N92.0 Excessive and frequent menstruation with regular cycle; D64.9 Anemia, unspecified
CPT/HCPCS: 36415; 74177; 80053; 81003; 81025; 83690; 85025; 96374; 96375; 99284; J2765; Q9967; 81001; 87086

== ENCOUNTER 2021-03-12 20:54 | Emergency (ER) | payer OTHER ==
--- NOTE | 2021-03-12 21:15 | ED Physician Documentation ---
History of Present Illness - Stated complaint Stated Complaint: BODYACHES,NAUSEA,HEADACHE - Chief complaint Chief Complaint: General - History obtained from History obtained from: Patient - History of Present Illness Timing: Yesterday Improved by: no ameliorating factors Worsened by: no exacerbating factors - Additonal information Additional information: c/o nasal congestion, generalized myalgias, malaise. symptoms since yesterday. She denies fever, denies cough, denies dyspnea. nausea without vomiting. She is not COVID vaccinated. is registered as ED patient at this time for same symptoms Review of Systems Constitutional: reports: Myalgias, Fatigue. denies: Fever Nose: reports: Congestion Respiratory: denies: Dyspnea, Cough GI: reports: Nausea. denies: Abdominal Pain, Vomiting PD PAST MEDICAL HISTORY - Past Medical History Cardiovascular: None Respiratory: None Neuro: None Endocrine/Autoimmune: None GI: None MOVEMENT EDUCATION SPECIALIST: None : None HEENT: Other Psych: Depression, Anxiety, Panic attacks Musculoskeletal: None Derm: None - Past Surgical History Past Surgical History: Yes General: 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 /MOVEMENT EDUCATION SPECIALIST: section HEENT: Tonsil/Adenoidectomy - Present Medications Home Medications: Ambulatory Orders Medication Instructions Recorded Confirmed Fluconazole [Diflucan] 100 mg PO ONCE #2 tablet 06/16/19 Oxycodone HCl 5 - 10 mg PO Q6H PRN #25 tablet 06/16/19 cephALEXin [Keflex] 500 mg PO Q6H #28 capsule 06/16/19 dexAMETHasone [Decadron] 4 mg PO DAILY #5 tablet 06/16/19 Amox/Clav 875/125 [Augmentin] 1 each PO Q12H #20 tablet 06/25/19 Meloxicam [Mobic] 15 mg PO DAILY PRN #20 tablet 06/25/19 oxyCODONE [Roxicodone] 5 - 10 mg PO Q4-6H #14 tablet 06/25/19 predniSONE [Deltasone] 10 mg PO [id number] #42 tab 06/25/19 Lidocaine [Anecream] 5 gm TP QID #2 cream..g. 08/15/19 Ondansetron Odt [Zofran Odt] 4 mg TL Q6H PRN #10 tablet 03/12/21 - Allergies Allergies/Adverse Reactions: Allergies Allergy/AdvReac Type Severity Reaction Status Date / Time acetaminophen Allergy Severe Anaphylaxis Verified 03/12/21 21:06 - Social History Does the pt smoke?: No Smoking Status: Never smoker Does the pt drink ETOH?: Yes Does the pt have substance abuse?: No - Immunizations Immunizations are current?: Yes - POLST Patient has POLST: No PD ED PE NORMAL - Vitals Vital signs reviewed: Yes - General General: Alert and oriented X 3, No acute distress, Well developed/nourished - HEENT HEENT: Moist mucous membranes - Neck Neck: Supple, no meningeal sign - Cardiac Cardiac: RRR, No murmur - Respiratory Respiratory: No respiratory distress, Clear bilaterally Results - Vitals Vitals: Vital Signs - 24 hr 03/12/21 03/12/21 03/12/21 21:01 22:05 23:31 Temperature 37.1 C Heart Rate 91 84 Respiratory 18 18 Rate Blood Pressure 90/71 139/79 H 144/82 H O2 Saturation 100 97 Oxygen O2 Source Room air - Labs Labs: Laboratory Tests 03/12/21 21:58 Nasal Adenovirus (PCR) NOT DETECTED Nasal B. parapertussis DNA (PCR) NOT DETECTED Nasal Coronavir 229E PCR NOT DETECTED Nasal Coronavir HKU1 PCR NOT DETECTED Nasal Coronavir NL63 PCR NOT DETECTED Nasal Coronavir OC43 PCR NOT DETECTED Nasal Enterovir/Rhinovir PCR NOT DETECTED Nasal Influenza B PCR NOT DETECTED Nasal Influenza A PCR NOT DETECTED Nasal Parainfluen 1 PCR NOT DETECTED Nasal Parainfluen 2 PCR NOT DETECTED Nasal Parainfluen 3 PCR NOT DETECTED Nasal Parainfluen 4 PCR NOT DETECTED Nasal RSV (PCR) NOT DETECTED Nasal B.pertussis DNA PCR NOT DETECTED Nasal C.pneumoniae (PCR) NOT DETECTED Carlos Human Metapneumo PCR NOT DETECTED Nasal M.pneumoniae (PCR) NOT DETECTED Nasal SARS-CoV-2 (PCR) DETECTED A PD MEDICAL DECISION MAKING - ED course Complexity details: reviewed results, considered differential, d/w patient ED course: presents with generalized myalgias and malaise with nausea and fatigue since yesterday. She is not COVID vaccinated and has (+) COVID-19 result on tonight's testing. Advised to quarantine as per CDC/[place] guidelines. Option of receiving Regeron offered (meets criteria by BMI), and advised to return to ED in the morning if she is interested in receiving this medication. Departure - Departure Disposition: 01 Home, Self Care Clinical Impression: COVID-19 Condition: Good Instructions: COVID-19 [facility] Follow-Up: MIROSLAVA ALEJANDRE DO [Primary Care Provider] - Prescriptions: Ondansetron Odt [Zofran Odt] 4 mg TL Q6H PRN #10 tablet PRN Reason: Nausea / Vomiting Comments: There is an intravenous medication that can be given as a one-time dose for COVID patients if certain criteria are met; you would meet the criteria for this medication. The medication (Regeneron) shortens the course of the illness in some patients, and in some patient it lowers the risk of becoming sick enough to need to be hospitalized. It can only be given during the day when the pharmacist is on the hospital premises. If you are interested in receiving this medication, return to the emergency department in the morning after 8 AM and check in as an emergency department patient for Regeneron infusion. You need to quarantine as per the [facility] and CDC guidelines. If any friends or family get sick and would like to have a COVID test done, but do not have signs or symptoms that would necessitate being hospitalized, we encourage testing through our coronavirus swabbing station, call [phone] to schedule an appointment. Forms: Activity restrictions Discharge Date/Time: 03/12/21 23:32
[2021-03-12] MEDS ORDERED: ONDANSETRON ODT 4 MG TABLET TL STA (21:48)
[2021-03-12 23:14] LABS: B. PARAPERTUSSIS- RESP PCR PAN NOT DETECTED; B. PERTUSSIS- RESP PCR PANEL NOT DETECTED; C. PNEUMONIAE- RESP PCR PANEL NOT DETECTED; CORONAVIRUS 229E-RESP PCR NOT DETECTED; CORONAVIRUS HKU1-RESP PCR NOT DETECTED; CORONAVIRUS NL63-RESP PCR NOT DETECTED; CORONAVIRUS OC43-RESP PCR NOT DETECTED; HUMAN METAPNEUMOVIRUS NOT DETECTED; INFLUENZA A- RESP PCR PANEL NOT DETECTED; INFLUENZA B - RESP PCR PANEL NOT DETECTED; M. PNEUMONIAE- RESP PCR PANEL NOT DETECTED; PARAINFLUENZA VIRUS 1 NOT DETECTED; PARAINFLUENZA VIRUS 2 NOT DETECTED; PARAINFLUENZA VIRUS 3 NOT DETECTED; PARAINFLUENZA VIRUS 4 NOT DETECTED; RHINOVIRUS/ENTEROVIRUS NOT DETECTED; RSV- RESP PCR PANEL NOT DETECTED; SARS-CoV-2 -RESP PCR PANEL DETECTED
[2021-03-12 23:32] VITALS: BP 144/82
== END 2021-03-12 23:32 | disposition home or self-care (01) ==
LOC: ED 20:54
DX: U07.1 COVID-19 (principal); M79.10 Myalgia, unspecified site; R53.81 Other malaise
CPT/HCPCS: 0202U; 99283; 99284; Q0162

== ENCOUNTER 2021-07-04 15:19 | Emergency (ER) | payer OTHER ==
--- NOTE | 2021-07-04 16:26 | XRAY Report ---
PROCEDURE: Knee 4 View RT INDICATIONS: Trauma TECHNIQUE: 4 views of the right knee were acquired. COMPARISON: None. FINDINGS: Bones: No fractures or dislocations. No suspicious bony lesions. Soft tissues: No joint effusion. No suspicious soft tissue calcifications. IMPRESSION: 1. No fracture or dislocation. Reviewed by: Seymour Amanda MD on 07/04/2021 3:25 PM [facility] Approved by: Seymour Amanda MD on 07/04/2021 3:25 PM [facility] Station ID: [id number]
--- NOTE | 2021-07-04 16:27 | XRAY Report ---
PROCEDURE: Shoulder 3 View RT INDICATIONS: injury TECHNIQUE: 3 views of the shoulder were acquired. COMPARISON: None. FINDINGS: Bones: No fractures or dislocations. No suspicious bony lesions. Visualized ribs appear intact. Soft tissues: No suspicious soft tissue calcifications. IMPRESSION: 1. No fracture or dislocation. Reviewed by: Seymour Amanda MD on 07/04/2021 3:26 PM [facility] Approved by: Seymour Amanda MD on 07/04/2021 3:26 PM [facility] Station ID: [id number]
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
[2021-07-04 17:45] VITALS: BP 129/85
== END 2021-07-04 17:36 | disposition home or self-care (01) ==
LOC: ED 15:19
DX: S80.212A Abrasion, left knee, initial encounter (principal); S80.211A Abrasion, right knee, initial encounter; S80.01XA Contusion of right knee, initial encounter; S40.011A Contusion of right shoulder, initial encounter; V00.841A Fall from standing electric scooter, initial encounter; Y93.89 Activity, other specified
CPT/HCPCS: 99283

== ENCOUNTER 2021-11-07 15:57 | Emergency (ER) | payer OTHER ==
[2021-11-07 16:28] LABS: BASOPHILS # (AUTO) 0.1 10^3/uL (0.0-0.1); BASOPHILS % (AUTO) 0.8 %; EOSINOPHILS # (AUTO) 0.2 10^3/uL (0.0-0.7); HCT - HEMATOCRIT 27.3 % (37.0-47.0); HGB - HEMOGLOBIN 7.4 g/dL (12.0-16.0); LYMPHOCYTES # (AUTO) 3.1 10^3/uL (1.5-3.5); LYMPHOCYTES % (AUTO) 39.4 %; MEAN CORPUSCULAR HEMOGLOBIN 16.2 pg (27.0-31.0); MEAN CORPUSCULAR HGB CONC 27.1 g/dL (32.0-36.0); MEAN CORPUSCULAR VOLUME 59.9 fL (81.0-99.0); MONOCYTES # (AUTO) 0.5 10^3/uL (0.0-1.0); MONOCYTES % (AUTO) 6.5 %; NEUTROPHILS # (AUTO) 4.1 10^3/uL (1.5-6.6); NEUTROPHILS % (AUTO) 50.9 %; PLT - PLATELET COUNT 259 10^3/uL (130-450); RED BLOOD COUNT 4.56 10^6/uL (4.20-5.40); RED CELL DISTRIBUTION WIDTH 19.7 % (12.0-15.0)
[2021-11-07] MEDS ORDERED: ONDANSETRON 4 MG/2 ML VIAL IVP STA (16:28)
[2021-11-07 16:30] LABS: SLIDE REVIEW? Indicated
[2021-11-07 16:31] LABS: BILIRUBIN,URINE NEGATIVE (NEGATIVE); GLUCOSE, URINE (UA) NEGATIVE (NEGATIVE); KETONES,URINE (UA) NEGATIVE (NEGATIVE); LEUKOCYTE ESTERASE, URINE NEGATIVE (NEGATIVE); NITRITE,URINE NEGATIVE (NEGATIVE); OCCULT BLOOD,URINE NEGATIVE (NEGATIVE); PROTEIN,URINE NEGATIVE (NEGATIVE); UROBILINOGEN,URINE 0.2 (NORMAL) E.U./dL (NORMAL)
[2021-11-07 16:34] LABS: ALBUMIN 4.4 g/dL (3.2-5.5); ALBUMIN/GLOBULIN RATIO 1.2 (1.0-2.2); BILIRUBIN,TOTAL 0.6 mg/dL (0.2-1.0); CALCIUM 9.1 mg/dL (8.5-10.3); CREATININE 0.5 mg/dL (0.4-1.0); POTASSIUM 3.8 mmol/L (3.5-5.0); TOTAL PROTEIN 8.2 g/dL (6.7-8.2)
[2021-11-07 16:36] LABS: CLARITY,URINE CLEAR (CLEAR); HCG UR QUAL NEGATIVE
[2021-11-07] MEDS ORDERED: IOVERSOL 320 100 ML VIAL IVP ONE ×2 (16:41→16:58)
[2021-11-07 16:50] LABS: PLATELET ESTIMATE, MANUAL NORMAL (130-450,000) (NORMAL); PLATELET MORPHOLOGY NORMAL APPEARANCE (NORMAL)
--- NOTE | 2021-11-07 17:03 | ED Physician Documentation ---
PD HPI ABD PAIN - Stated complaint Stated Complaint: R SIDE PX,NAUSEA - Chief complaint Chief Complaint: Abd Pain - History obtained from History obtained from: Patient - History of Present Illness Timing - duration: Days (4) Pain level max: 5 Pain level now: 3 Associated symptoms: No: Fever, Nausea, Vomiting, Hematemesis, Diarrhea, Constipation, Melena, Hematochezia, Dysuria, Hematuria - Additional information Additional information: Patient is a 30-year-old female who presents to the emergency department the right lower quadrant abdominal pain for the past 4 days. Radiates to the right flank. Nothing makes it better or worse. Described as dull and aching. Patient states has not had similar symptoms previously. Denies any possibility of . No vaginal bleeding or discharge. No history of ureteral stones. Has had a cholecystectomy in the past. No fevers. No chills. No vomiting, diarrhea or constipation. 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 : None HEENT: Other Psych: Depression, Anxiety, Panic attacks Musculoskeletal: None Derm: None - Past Surgical History Past Surgical History: Yes General: 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 /BUSINESS INSIGHT AND 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: section HEENT: Tonsil/Adenoidectomy - Present Medications Home Medications: Ambulatory Orders Medication Instructions Recorded Confirmed Ferrous Sulfate 325 mg PO DAILY #30 tab 11/07/21 Ondansetron Odt [Zofran] 4 mg TL Q6H PRN #10 tablet 11/07/21 Oxycodone HCl [Roxicodone] 5 - 10 mg PO Q6H PRN #14 tablet 11/07/21 - Allergies Allergies/Adverse Reactions: Allergies Allergy/AdvReac Type Severity Reaction Status Date / Time acetaminophen Allergy Severe Anaphylaxis Verified 11/07/21 16:03 - Social History Does the pt smoke?: No Smoking Status: Never smoker Does the pt drink ETOH?: Yes Does the pt have substance abuse?: No - Immunizations Immunizations are current?: Yes - POLST Patient has POLST: No PD ED PE NORMAL - Vitals Vital signs reviewed: Yes - General General: Alert and oriented X 3, No acute distress - HEENT HEENT: PERRL, Moist mucous membranes - Neck Neck: Supple, no meningeal sign - Cardiac Cardiac: RRR - Respiratory Respiratory: No respiratory distress, Clear bilaterally - Abdomen Abdomen: Soft, Non distended, Other (Mild tenderness to palpation right lower quadrant. No peritoneal signs.) - Back Back: No CVA TTP, No spinal TTP - Derm Derm: Warm and dry - Extremities Extremities: No edema - Neuro Neuro: Alert and oriented X 3 - Psych Psych: Normal mood, Normal affect Results - Vitals Vitals: Vital Signs - 24 hr 11/07/21 11/07/21 11/07/21 16:03 16:34 17:41 Temperature 36.9 C 37 C Heart Rate 91 57 L 82 Respiratory 18 16 18 Rate Blood Pressure 124/76 123/58 L 134/75 H O2 Saturation 100 100 97 Oxygen O2 Source Room air - Labs Labs: Laboratory Tests 11/07/21 11/07/21 11/07/21 16:15 16:16 16:16 WBC 8.0 RBC 4.56 Hgb 7.4 L Hct 27.3 L MCV 59.9 L MCH 16.2 L MCHC 27.1 L RDW 19.7 H Plt Count 259 Neut # (Auto) 4.1 Lymph # (Auto) 3.1 [place] # (Auto) 0.5 Eos # (Auto) 0.2 Baso # (Auto) 0.1 Absolute Nucleated RBC 0.00 Nucleated RBC % 0.0 Manual Slide Review Indicated Platelet Estimate NORMAL (130-450,000) Platelet Morphology NORMAL APPEARANCE RBC Morph Micro Appear 2+ MICROCYTOSIS Sodium 136 Potassium 3.8 Chloride 103 Carbon Dioxide 22 Anion Gap 11.0 BUN 12 Creatinine 0.5 Estimated GFR (MDRD) 145 Glucose 107 H Calcium 9.1 Total Bilirubin 0.6 AST 31 ALT 44 Alkaline Phosphatase 74 Total Protein 8.2 Albumin 4.4 Globulin 3.8 Albumin/Globulin Ratio 1.2 Lipase 36 Urine Color YELLOW Urine Clarity CLEAR Urine pH 7.0 Ur Specific [place] 1.015 Urine Protein NEGATIVE Urine Glucose (UA) NEGATIVE Urine Ketones NEGATIVE Urine Occult Blood NEGATIVE Urine Nitrite NEGATIVE Urine Bilirubin NEGATIVE Urine Urobilinogen 0.2 (NORMAL) Ur Leukocyte Esterase NEGATIVE Ur Microscopic Review NOT INDICATED Urine Culture Comments NOT INDICATED Urine HCG, Qual NEGATIVE - Rads (name of study) CT abdomen and pelvis Radiology: Final report received, EMP read contemporaneously, See rad report (2 cm right ovarian hemorrhagic cyst, with mild stranding fluid. Please consider a follow-up pelvic ultrasound, if clinically appropriate. Normal appendix. ) PD MEDICAL DECISION MAKING - ED course Complexity details: reviewed results, re-evaluated patient, considered differential, d/w patient ED course: 30-year-old female with a 2 cm right-sided hemorrhagic ovarian cyst. Pain well controlled. She is also found to be anemic. She states that this is chronic for her. She has been told that she needs to take iron supplementation but states that she does not tolerate it well. We will prescribe iron for home, recommend that she talk with her doctor this week about an iron infusion. This can be done at the [facility] clinic. No evidence of torsion at this time. Patient is well-appearing, nontoxic. Afebrile. Patient is not symptomatic from the anemia currently. I am prescribing a short course of short-acting opioid pain medication for this patient. 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 I have discussed that the opioids are for short term therapy only, and will not be refilled from the ED. patient counseled regarding signs and symptoms for which I believe and urgent re-evaluation would be necessary. Patient with good understanding of and agreement to plan and is comfortable going home at this time This document was made in part using voice recognition software. While efforts are made to proofread this document, sound alike and grammatical errors may occur. Departure - Departure Disposition: 01 Home, Self Care Clinical Impression: Hemorrhagic ovarian cyst Iron deficiency anemia Qualifiers: Iron deficiency anemia type: unspecified iron deficiency Qualified Code(s): D50.9 - Iron deficiency anemia, unspecified Condition: Good Instructions: ED Anemia Iron Deficiency, ED Cyst Ovarian Follow-Up: MIROSLAVA ALEJANDRE DO [Primary Care Provider] - Within 1 week Prescriptions: Ferrous Sulfate 325 mg PO DAILY #30 tab Oxycodone HCl [Roxicodone] 5 - 10 mg PO Q6H PRN #14 tablet PRN Reason: Pain Ondansetron Odt [Zofran] 4 mg TL Q6H PRN #10 tablet PRN Reason: Nausea / Vomiting Comments: You have a right-sided hemorrhagic ovarian cyst. These usually resolve on their own. It is recommended that you have an ultrasound with your doctor in 4 to 6 weeks to ensure resolution. Return sooner if you are worsening or not improving as expected. Your prescriptions were sent to [facility] in [place]. You also have anemia today. This appears secondary to iron deficiency. We will start you on iron pills. Your blood count should be rechecked with your doctor this week. Your hemoglobin is 7.4 today. They may want to order an iron infusion for you, this can be arranged at the [facility]. Your doctor can send an order to the clinic for the infusion. CT RESULTS 2 cm right ovarian hemorrhagic cyst, with mild stranding fluid. Please consider a follow-up pelvic ultrasound, if clinically appropriate. Normal appendix. I am prescribing a short course of narcotic pain medication for you. These are potentially dangerous and addictive medications that should be used carefully. These medications may constipate you. Take an rcwd-fce-hhcvlly stool softener (docusate) twice daily with plenty of water while taking these medications. If you go 24 hours without a bowel movement, take [id number] miralax, per package instructions. Do not drink or drive while taking these medications. If you received narcotic or sedating medications while in the emergency department, do not drive for 24 hours. Store this medication in a safe, secure place and out of reach of children. It is a violation of federal law to give or sell this medication to another person or to use in a manner other than prescribed. The ED will not refill narcotic prescriptions, including prescriptions lost or stolen. To dispose of unwanted medications: 1. [facility] [address] in [place] has a medication drop box. They accept prescription medications (in pill form) Monday through Monday 9:00 a.m. to 5:00 p.m. 2. The [facility] accepts prescription medications (in pill form only) for disposal year round. Call for more information. 3. Contact the [facility] for the next [facility] sponsored prescription drug collection event. , [phone], or [phone]; Discharge Date/Time: 11/07/21 17:50
--- NOTE | 2021-11-07 17:14 | CT Report ---
PROCEDURE: Abdomen/Pelvis W INDICATIONS: RLQ abd pain CONTRAST: IV CONTRAST: Optiray 320 ml: 100 PO CONTRAST: *NO PO CONTRAST TECHNIQUE: After the administration of IV contrast, 5 mm thick sections acquired from the diaphragms to the symp hysis. 5 mm thick coronal and sagittal reformats were acquired. For radiation dose reduction, the f ollowing was used: automated exposure control, adjustment of mA and/or kV according to patient size. COMPARISON: 08/15/2019, 02/07/2018 FINDINGS: Image quality: Excellent. ABDOMEN: Lung bases: Lung bases are clear. Heart size is normal. Solid organs: Diffuse fatty liver infiltration can be seen. The liver demonstrates normal size. No liver lesions are detected. Gallbladder has been removed. The spleen demonstrates normal size and demonstrates no focal lesion. Biliary system is non dilated. Pancreas enhances normally. No adrenal nodules. Kidneys demonstrate normal size and enhancement, without hydronephrosis. Peritoneum and bowel: In this patient with this given history, scrutiny is given to the appendix. Th e appendix is normal, demonstrating normal caliber and demonstrate gas within its lumen. Bowel loops demonstrate normal wall thickness and caliber. No free fluid or air. Nodes and vessels: No retroperitoneal or mesenteric adenopathy by size criteria. Aorta and inferior vena cava are normal in size. Miscellaneous: No ventral hernias. PELVIS: Genitourinary: Bladder wall thickness is normal. No significant abnormality of the uterus is seen. Within the right ovary, there is a rim-enhancing cyst seen, as on series 3 image 71 measuring 2 cm. M ild adjacent fluid can be seen. [place] developmental anomalies are incidentally noted, whic h are not considered to be clinically significant. Bilateral sterilization clips are incidentally not ed. Miscellaneous: No inguinal hernias or adenopathy. Bones: No suspicious bony lesions. No vertebral body compression fractures. There is a unilateral l eft-sided pars defect at L5. Mild levoconvex scoliotic curvature is seen. IMPRESSION: 2 cm right ovarian hemorrhagic cyst, with mild stranding fluid. Please consider a follow-up pelvic ultrasound, if clinically appropriate. Normal appendix. Incidental note is made of: 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 Fatty liver infiltration Sterilization clips Levoconvex scoliotic curvature Unilateral left L5 pars defect. Reviewed by: Ross Monge MD on 11/07/2021 4:12 PM AKDT Approved by: Ross Monge MD on 11/07/2021 4:12 PM YARYDT Station ID: [id number]
[2021-11-07] MEDS ORDERED: oxyCODONE 5 MG TABLET PO STA (17:33)
[2021-11-07 17:41] VITALS: BP 134/75
== END 2021-11-07 17:50 | disposition home or self-care (01) ==
LOC: ED 15:57
DX: N83.201 Unspecified ovarian cyst, right side (principal); D50.9 Iron deficiency anemia, unspecified
CPT/HCPCS: 36415; 74177; 80053; 81003; 81025; 83690; 85025; 96374; 99284; A9270; Q9967; 81001; 87086